=== PATIENT | female | born 1960 | race Caucasian/White ===

== ENCOUNTER 2017-01-20 07:46 | Emergency (ER) | payer SELFPAY ==
[~2017-01-20] VITALS: Ht 160 cm; Wt 80.0 kg
[2017-01-20 07:53] VITALS: BP 171/111; PULSE 107; RESP 16; TEMP 97.5; O2SAT 97
[2017-01-20 08:15] VITALS: BP 169/93; PULSE 97; RESP 20; O2SAT 99
--- NOTE | 2017-01-20 08:26 | PD ---
HPI Chief Complaint: Cardiac Complaint Time Seen by Provider: 08:05 Travel History International Travel<30 days: No Contact w/Intl Traveler<30days: No Traveled to known affect area: No History of Present Illness HPI The patient is a 56-year-old female who presents to the emergency department for elevated blood pressure. The patient states her mother recently at [facility] approximately one month ago from coronary artery disease. The patient states last week she's not been feeling well and occasionally has palpitations, shortness of breath, and dizziness. The patient' s blood pressure was noted to have a diastolic of 114 earlier today at work and she was referred to the emergency department. The patient does have a history of elevated blood pressure that was diagnosed by her primary physician, Dr. Smith, however, was not started on medications. The patient denies any acute chest pain or shortness of breath in the emergency department and denies any associated nausea, vomiting, abdominal pain, or focal deficits. Symptoms are mild to moderate, possibly exacerbated by history of elevated blood pressure , and self alleviating. She also complains of mild posterior neck pain over the last week, states that her stated looked upwards at times as well as get comfortable at night while sleeping. She denies any associated fever. COUNT INCLUDES THE [facility] Past Medical History Medical History: Denies Significant Hx Tetanus Vaccination: > 5 Years Influenza Vaccination: No ?: Not LMP: 2014 Menopausal: Yes Past Surgical History Other Surgery: Yes (BREAST LIFT, CHIN IMPLANT) Social History Alcohol Use: Yes (DAILY) Tobacco Use: No Substance Use: No Allergies-Medications (Allergen,Severity, Reaction): Coded Allergies: No Known Allergies (Unverified , 01/20/17) Reported Meds & Prescriptions Reported Meds & Active Scripts Active No Active Prescriptions or Reported Medications Review of Systems Except as stated in HPI: all other systems reviewed are Neg General / Constitutional: No: Fever Eyes: No: Visual changes HENT: Positive: Headaches (intermittent), Neck Pain (posterior neck pain times one week, worsen movement) Cardiovascular: No: Chest Pain or Discomfort Respiratory: Positive: Shortness of Breath (intermittent) Gastrointestinal: No: Nausea, Vomiting, Abdominal Pain Musculoskeletal: No: Weakness Neurologic: Positive: Dizziness (intermittent), No: Focal Abnormalities Physical Exam Narrative GENERAL: Awake, alert, pleasant 56-year-old female who appears her stated age and is in no acute respiratory distress. SKIN: Focused skin assessment warm/dry. HEAD: Atraumatic. Normocephalic. EYES: Pupils equal and round. 4 mm bilateral and reactive. EOMs are intact. ENT: No nasal bleeding or discharge. Mucous membranes pink and moist. NECK: Trachea midline. No JVD. Full range of motion with flexion, extension, and rotation. No midline tenderness or paravertebral tenderness. CARDIOVASCULAR: Regular rate and rhythm. No murmur appreciated. RESPIRATORY: No accessory muscle use. Clear to auscultation. Breath sounds equal bilaterally. GASTROINTESTINAL: Abdomen soft, non-tender, nondistended. MUSCULOSKELETAL: No obvious deformities. No clubbing. No cyanosis. No edema. NEUROLOGICAL: Awake and alert. No obvious cranial nerve deficits. Motor grossly within normal limits. Normal speech. Nonfocal. Oriented 4. Follows commands without difficulty. PSYCHIATRIC: Appropriate mood and affect; insight and judgment normal. Data Data Last Documented VS Vital Signs Date Time Temp Pulse Resp B/P (MAP) Pulse Ox O2 Delivery O2 Flow Rate FiO2 01/20/17 09:00 18 99 Room Air 01/20/17 08:15 96 01/20/17 07:53 97.5 Orders Orders Electrocardiogram (01/20/17 08:20) Ckmb (Isoenzyme) Profile (01/20/17 08:20) Complete Blood Count With Diff (01/20/17 08:20) Comprehensive Metabolic Panel (01/20/17 08:20) Magnesium (Mg) (01/20/17 08:20) Troponin I (01/20/17 08:20) Chest, Single Ap (01/20/17 08:20) Ecg Monitoring (01/20/17 08:20) Bilateral Bp Monitoring (01/20/17 08:20) Iv Access Insert/Monitor (01/20/17 08:20) Oximetry (01/20/17 08:20) Oxygen Administration (01/20/17 08:20) Aspirin Chew (Aspirin Chew) (01/20/17 08:30) Sodium Chloride 0.9% Flush (Ns Flush) (01/20/17 08:30) Sodium Chlorid 0.9% 500 Ml Inj (Ns 500 M (01/20/17 08:30) Ed Discharge Order (01/20/17 10:23) Labs Laboratory Tests Test 01/20/17 06:32 White Blood Count 7.2 TH/MM3 Red Blood Count 4.56 MIL/MM3 Hemoglobin 15.4 GM/DL Hematocrit 44.9 % Mean Corpuscular Volume 98.5 FL Mean Corpuscular Hemoglobin 33.7 PG Mean Corpuscular Hemoglobin Concent 34.3 % Red Cell Distribution Width 12.9 % Platelet Count 247 TH/MM3 Mean Platelet Volume 7.7 FL Neutrophils (%) (Auto) 69.6 % Lymphocytes (%) (Auto) 19.0 % Monocytes (%) (Auto) 8.7 % Eosinophils (%) (Auto) 1.8 % Basophils (%) (Auto) 0.9 % Neutrophils # (Auto) 5.0 TH/MM3 Lymphocytes # (Auto) 1.4 TH/MM3 Monocytes # (Auto) 0.6 TH/MM3 Eosinophils # (Auto) 0.1 TH/MM3 Basophils # (Auto) 0.1 TH/MM3 CBC Comment DIFF FINAL Differential Comment Blood Urea Nitrogen 10 MG/DL Creatinine 0.54 MG/DL Random Glucose 95 MG/DL Total Protein 7.5 GM/DL Albumin 3.7 GM/DL Calcium Level 9.3 MG/DL Magnesium Level 1.9 MG/DL Alkaline Phosphatase 80 U/L Aspartate Amino Transf (AST/SGOT) 24 U/L Alanine Aminotransferase (ALT/SGPT) 31 U/L Total Bilirubin 0.9 MG/DL Sodium Level 137 MEQ/L Potassium Level 3.6 MEQ/L Chloride Level 102 MEQ/L Carbon Dioxide Level 24.6 MEQ/L Anion Gap 10 MEQ/L Estimat Glomerular Filtration Rate 117 ML/MIN Total Creatine Kinase 43 U/L Troponin I LESS THAN 0.02 NG/ML MDM Medical Decision Making Medical Screen Exam Complete: Yes Emergency Medical Condition: Yes Medical Record Reviewed: Yes Interpretation(s) EKG reveals normal sinus rhythm with a rate 84. Wavy baseline. Last Impressions Chest X-Ray 01/20/17 0820 Signed Impressions: Service Date/Time: Friday, January 20, 2017 08:49 - CONCLUSION: The lungs are clear. Rachid Pa MD Laboratory Tests Test 01/20/17 06:32 White Blood Count 7.2 TH/MM3 Red Blood Count 4.56 MIL/MM3 Hemoglobin 15.4 GM/DL Hematocrit 44.9 % Mean Corpuscular Volume 98.5 FL Mean Corpuscular Hemoglobin 33.7 PG Mean Corpuscular Hemoglobin Concent 34.3 % Red Cell Distribution Width 12.9 % Platelet Count 247 TH/MM3 Mean Platelet Volume 7.7 FL Neutrophils (%) (Auto) 69.6 % Lymphocytes (%) (Auto) 19.0 % Monocytes (%) (Auto) 8.7 % Eosinophils (%) (Auto) 1.8 % Basophils (%) (Auto) 0.9 % Neutrophils # (Auto) 5.0 TH/MM3 Lymphocytes # (Auto) 1.4 TH/MM3 Monocytes # (Auto) 0.6 TH/MM3 Eosinophils # (Auto) 0.1 TH/MM3 Basophils # (Auto) 0.1 TH/MM3 CBC Comment DIFF FINAL Differential Comment Blood Urea Nitrogen 10 MG/DL Creatinine 0.54 MG/DL Random Glucose 95 MG/DL Total Protein 7.5 GM/DL Albumin 3.7 GM/DL Calcium Level 9.3 MG/DL Magnesium Level 1.9 MG/DL Alkaline Phosphatase 80 U/L Aspartate Amino Transf (AST/SGOT) 24 U/L Alanine Aminotransferase (ALT/SGPT) 31 U/L Total Bilirubin 0.9 MG/DL Sodium Level 137 MEQ/L Potassium Level 3.6 MEQ/L Chloride Level 102 MEQ/L Carbon Dioxide Level 24.6 MEQ/L Anion Gap 10 MEQ/L Estimat Glomerular Filtration Rate 117 ML/MIN Total Creatine Kinase 43 U/L Troponin I LESS THAN 0.02 NG/ML Differential Diagnosis Differential diagnosis includes hypertension, hypertensive urgency, hypertensive emergency, congestive heart failure, electrolyte abnormality, arrhythmia. Narrative Course IV was established, labs are drawn and sent, and the patient was placed on cardiac telemetry monitoring and continuous pulse oximetry monitoring. EKG was ordered and interpreted. Chest x-ray was obtained. Chest x-ray was unremarkable. Laboratory evaluation is unremarkable. Troponin and CPK are normal. The patient's blood pressure came down to a systolic in the 140s and diastolic in the 90s. The patient appears to have underlying hypertension, will be placed on low-dose was Cipro and advised to follow-up with her primary physician. She is also advised to keep a blood pressure log and return if symptoms worsen or progress. Patient agrees and understands. Diagnosis Primary Impression: Hypertension Qualified Codes: I10 - Essential (primary) hypertension Patient Instructions: General Instructions Additional Instructions: Medications as directed. Follow-up with your primary physician. Return if symptoms worsen or progress. Please provide the patient a copy of her x-ray results, lab results, and EKG at discharge. Monitor blood pressure daily and keep a log. Med/Other Pt SpecificInfo: Prescription(s) given Scripts Lisinopril (Lisinopril) 5 Mg Tab 5 MG PO DAILY for Blood Pressure Management, #30 TAB 0 Refills Prov: Grant Diaz MD 01/20/17 Disposition: 01 DISCHARGE HOME Condition: Stable Grant Diaz MD Jan 20, 2017 08:26
[2017-01-20] MEDS ORDERED: SODIUM CHLORID 0.9% 500 ML INJ 500 ML IV ONE (08:30)
[2017-01-20] MEDS ORDERED: ASPIRIN 81 MG CHEW TAB PO ONE (08:30)
[2017-01-20] MEDS ORDERED: SODIUM CHLORIDE 0.9% FLUSH 10 ML FLUSH IVF PRN (08:30)
[2017-01-20 08:55] LABS: BASOPHIL # 0.1 TH/MM3 (0-0.2); BASOPHIL % 0.9 % (0.0-2.0); EOSINOPHIL # 0.1 TH/MM3 (0-0.4); EOSINOPHIL % 1.8 % (0.0-4.0); HEMATOCRIT 44.9 % (35.0-46.0); HEMOGLOBIN 15.4 GM/DL (11.6-15.3); LYMPHOCYTE # 1.4 TH/MM3 (1.0-4.8); MEAN CELL VOLUME 98.5 FL (80.0-100.0); MEAN CORPUSCULAR HEMOGLOBIN 33.7 PG (27.0-34.0); MEAN CORPUSCULAR HGB CONC 34.3 % (32.0-36.0); MEAN PLATELET VOLUME 7.7 FL (7.0-11.0); MONO % 8.7 % (0.0-8.0); MONOCYTE # 0.6 TH/MM3 (0-0.9); NEUT % 69.6 % (16.0-70.0); PLATELET COUNT 247 TH/MM3 (150-450); RED BLOOD COUNT 4.56 MIL/MM3 (4.00-5.30); RED CELL DISTRIBUTION WIDTH 12.9 % (11.6-17.2); WHITE BLOOD COUNT 7.2 TH/MM3 (4.0-11.0)
[2017-01-20 09:00] VITALS: RESP 18; O2SAT 99
--- NOTE | 2017-01-20 09:19 | RADRPT ---
EXAM DATE/TIME: 01/20/2017 08:49 [facility] COMPARISON: No previous studies available for comparison. INDICATIONS : Palpitations. Syncope. Shortness of breath. MEDICAL HISTORY : Hypertension. SURGICAL HISTORY : None. ENCOUNTER: Initial ACUITY: 1 day PAIN SCORE: 0/10 LOCATION: Bilateral chest FINDINGS: A single view of the chest demonstrates the lungs to be symmetrically aerated without evidence of mas s, infiltrate or effusion. The cardiomediastinal contours are unremarkable. Osseous structures are intact. CONCLUSION: The lungs are clear. Rachid Pa MD on January 20, 2017 at 9:17 Board Certified Radiologist. This report was verified electronically.
[2017-01-20 09:23] LABS: ALBUMIN 3.7 GM/DL (3.4-5.0); AST (GOT) 24 U/L (15-37); BICARBONATE 24.6 MEQ/L (21.0-32.0); BLOOD UREA NITROGEN 10 MG/DL (7-18); CALCIUM 9.3 MG/DL (8.5-10.1); CHLORIDE 102 MEQ/L (98-107); CREATININE 0.54 MG/DL (0.50-1.00); GLOMERULAR FILTRATION RATE 117 ML/MIN (>89); GLUCOSE,RANDOM 95 MG/DL (74-106); MAGNESIUM 1.9 MG/DL (1.5-2.5); SODIUM (NA) 137 MEQ/L (136-145)
[2017-01-20 09:28] LABS: ALKALINE PHOSPHATASE 80 U/L (45-117); ALT (GPT) 31 U/L (10-53); TOTAL BILIRUBIN ADULT 0.9 MG/DL (0.2-1.0); TOTAL PROTEIN 7.5 GM/DL (6.4-8.2); TROPONIN I LESS THAN 0.02 NG/ML (0.02-0.05)
[2017-01-20] MEDS ORDERED: LISI-519 PO (10:25)
[2017-01-20 10:35] VITALS: BP 134/80
--- NOTE | 2017-01-20 18:04 | EKG ---
Date Performed: 01/20/2017 Time Performed: 08:37:59 PTAGE: 56 years EKG: Sinus rhythm WITH SHORT CA INTERVAL BORDERLINE ECG NO PREVIOUS TRACING DOCTOR: Ajay Chapman Interpretating Date/Time 01/20/2017 18:03:48
--- NOTE | 2017-01-20 18:04 | EKG ---
Date Performed: 01/20/2017 Time Performed: 08:37:59 PTAGE: 56 years EKG: Sinus rhythm WITH SHORT [place] INTERVAL BORDERLINE ECG NO PREVIOUS TRACING DOCTOR: Ajay Chapman Interpretating Date/Time 01/20/2017 18:03:48
--- NOTE | 2017-01-20 18:04 | EKG ---
Date Performed: 01/20/2017 Time Performed: 08:37:59 PTAGE: 56 years EKG: Sinus rhythm WITH SHORT MA INTERVAL BORDERLINE ECG NO PREVIOUS TRACING DOCTOR: Ajay Chapman Interpretating Date/Time 01/20/2017 18:03:48
== END 2017-01-20 11:02 | disposition home or self-care (01) ==
LOC: NEPE 07:46
DX: I10 Essential (primary) hypertension (principal); R94.31 Abnormal electrocardiogram [ECG] [EKG]; R00.2 Palpitations; R06.02 Shortness of breath; M54.2 Cervicalgia
CPT/HCPCS: 71010; 80053; 82550; 83735; 84484; 85025; 93005; 96360; 99285; J7040

== ENCOUNTER 2017-02-09 08:20 | Emergency (ER) | payer BC ==
[~2017-02-09] VITALS: Ht 160 cm; Wt 82.0 kg
[~2017-02-09 08:20] MED LIST: LISI-519 PO
[2017-02-09 08:22] VITALS: BP 155/95; PULSE 83; RESP 14; TEMP 98.4; O2SAT 99
[2017-02-09] MEDS ORDERED: CLON.5 PO (08:36)
[2017-02-09] MEDS ORDERED: ZOLO25TA PO (08:36)
[2017-02-09] MEDS ORDERED: PROPARACAINE HCL 0.5% OPHT SOLN 15 ML BTL EACH EYE ONE (09:00)
[2017-02-09] MEDS ORDERED: acetaZOLAMIDE 250 MG TAB PO ONE (10:00)
[2017-02-09] MEDS ORDERED: TIMOLOL MALEATE 0.5% OPHT SOLN 5 ML BTL LEFT EYE ONE (10:00)
[2017-02-09] MEDS ORDERED: [UNRECOGNIZED DRUG - OTHER] EACH EYE ONE (10:00)
[2017-02-09] MEDS ORDERED: PILOCARPINE HCL 1% OPHT SOLN 15 ML BTL LEFT EYE ONE (10:00)
[2017-02-09] MEDS ORDERED: OPTH EACH EYE ONE (10:00)
--- NOTE | 2017-02-09 10:05 | PD ---
Physical Exam Narrative I, Dr. Ruth, have reviewed the advance practice practitioner's documentation and am in agreement, met with the patient face to face, made the diagnosis, and the medical decision making was done by me. *My assessment and Findings: Acute angle closure glaucoma vs. iritis vs. retinal detachment vs. vitreous hemorrhage This patient was initially seen by the nurse practitioner before the beginning of my shift. Upon my arrival, she was asking me questions and I took over the care of this patient. This is a 56yo F with recent diagnosis of HTN and started on lisinopril here with complain of sudden onset left eye pain at 7pm yesterday night while watching television. Pt states she had progressive worsening vision in left eye. Denies any fever, or trauma. IOP left eye is elevated at 60. IOP right eye 10. Bedside ultrasound left eye showed no retinal detachment. No vitreous hemorrhage. Optic nerve diameter not dilated. There is no ophthalmology thoracic surgeon and we have been calling around for different manager decision support in the area with no answer so called ophthalmology in [place]. I discussed case with Dr. García from [place] [facility] and since pt has not received the medications that I initially ordered, we will go with his recommendations. He recommended cosopt 1 drop x2 15 minutes apart, brimonidine 0.2% 15 min apart and acetazolamide 500mg IV. Will recheck pressure after that. 10:45am: Administered 1 drop of cosopt, 1 drop of brimonidine to left eye. Received 500mg IV acetazolamide. 11:00am: Administered 2nd drop of cosopt and brimonidine. Pt had nausea and an episode of vomiting so zofran given. Pt reevaluated at bedside and repeat IOP left eye is 18. Vision has also improved. I was instructed to repeat the IOP. Pt no longer nauseous. IOP of left eye is again elevated and is now at 50. I discussed with manager decision support Dr. García. He said to discharge pt and to have pt come straight to his [place] office and meet him there at 2:30pm. Will give pt the eye drops physically and prescribe diamox. Data Data Last Documented VS Vital Signs Date Time Temp Pulse Resp B/P (MAP) Pulse Ox O2 Delivery O2 Flow Rate FiO2 02/09/17 08:32 82 18 02/09/17 08:22 98.4 155/95 (115) 99 Orders Orders Proparacaine 0.5% Opth Soln (Alcaine 0.5 (02/09/17 09:00) Ed Poc Ultrasound (02/09/17 ) Timolol 0.5% Opth Soln (Timoptic 0.5% Op (02/09/17 10:00) Apraclonidine 1% Opth Soln (Iopidine 1% (02/09/17 10:00) Pilocarpine 1% Opth Soln (Isopto Carpine (02/09/17 10:00) Acetazolamide (Diamox) (02/09/17 10:00) Brimonidine 0.2% Opth Soln (Alphagan 0.2 (02/09/17 10:30) Dorzol-Timol 2-0.5% Opth Soln (Cosopt 2- (02/09/17 10:30) Acetazolamide Inj (Diamox Inj) (02/09/17 10:30) Basic Metabolic Panel (Bmp) (02/09/17 10:18) Ondansetron Inj (Zofran Inj) (02/09/17 11:30) Ed Discharge Order (02/09/17 12:58) Labs Laboratory Tests Test 02/09/17 10:25 Blood Urea Nitrogen 7 MG/DL Creatinine 0.71 MG/DL Random Glucose 106 MG/DL Calcium Level 9.3 MG/DL Sodium Level 137 MEQ/L Potassium Level 4.0 MEQ/L Chloride Level 102 MEQ/L Carbon Dioxide Level 27.9 MEQ/L Anion Gap 7 MEQ/L Estimat Glomerular Filtration Rate 85 ML/MIN MDM Supervised Visit with ISAAC: Yes Critical Care Narrative Aggregate critical care time was 50 minutes. Time to perform other separately billable procedures not included in the critical care time. My time did not include minutes spent treating any other patients simultaneously or on activities that did not directly contribute to the patient's treatment. The services I provided to this patient were to treat and/or prevent clinically significant deterioration that could result in: blindness. I provided critical care services requiring my management, as noted below: Chart data review, documentation time, medication orders and management, vital sign assessments/reviewing monitor data, ordering and reviewing lab tests, ordering and interpreting/reviewing x- rays and diagnostic studies, care of the patient. Procedures Procedure Narrative Emergency department ocular ultrasound was performed with patient consent. Left eye: Linear probe was used in the transverse and sagittal views of the orbit without evidence of retinal detachment, vitreous hemorrhage, or lens dislocation. Diagnosis Primary Impression: Acute glaucoma of left eye Departure Forms: Tests/Procedures Additional Instruction: Please go straight to see Dr. García in [address] [facility]. [place], [place] at 2:30pm. Return to the ED if symptoms worsen. Med/Other Pt SpecificInfo: Prescription(s) given Scripts Acetazolamide ER 12 HR (Diamox Sequels ER 12 HR) 500 Mg Cap 500 MG PO Q12HR for Glaucoma for 7 Days, #60 CAP 0 Refills Prov: Liliana Ruth DO 02/09/17 Disposition: 01 DISCHARGE HOME Condition: Stable Liliana Ruth DO Feb 09, 2017 10:05
[2017-02-09] MEDS ORDERED: BRIMONIDINE TARTRATE 0.2% OPHT SOLN 5 ML BTL LEFT EYE ONE (10:30)
[2017-02-09] MEDS ORDERED: DORZOLAMIDE/TIMOLOL OPTH SOLN 10 ML BTL EACH EYE ONE (10:30)
--- NOTE | 2017-02-09 10:44 | PD ---
HPI . Left eye complaint Chief Complaint: Eye Problems/Injury Time Seen by Provider: 08:29 Travel History International Travel<30 days: No Contact w/Intl Traveler<30days: No Traveled to known affect area: No History of Present Illness HPI 56-year-old female presents emergency department for evaluation of left eye pain and injection that started spontaneously last night around 7 PM when she is watching television. Patient denies any eye trauma or injury. Patient denies any history of eye problems. Patient is not a contact lens wear. Patient recently was diagnosed with hypertension and started on lisinopril. Otherwise patient has no major medical history. [facility] Past Medical History Anxiety: Yes Cardiovascular Problems: Yes (HTN) ?: Not Menopausal: Yes Past Surgical History Other Surgery: Yes (BREAST LIFT, CHIN IMPLANT) Social History Alcohol Use: Yes (DAILY) Tobacco Use: No Substance Use: No Allergies-Medications (Allergen,Severity, Reaction): Coded Allergies: No Known Allergies (Unverified , 01/20/17) Reported Meds & Prescriptions Reported Meds & Active Scripts Active Diamox Sequels ER 12 HR (Acetazolamide) 500 Mg Cap 500 Mg PO Q12HR 7 Days Lisinopril 5 Mg Tab 5 Mg PO DAILY Reported Klonopin (Clonazepam) 0.5 Mg Tab 0.5 Mg PO BID Zoloft (Sertraline HCl) 25 Mg Tab 25 Mg PO DAILY Review of Systems Except as stated in HPI: all other systems reviewed are Neg Physical Exam Narrative GENERAL: Well-nourished, well-developed 56-year-old female patient in no respiratory distress. Patient is visibly anxious about eye condition. Nontoxic appearing. SKIN: Focused skin assessment warm/dry. HEAD: Normocephalic. Atraumatic. EYES: Left eye injected. Right pupil 3 mm round and responsive to light and accommodation.. Left pupil is 6 mm round, and nonresponsive to light or accommodation. Extraocular motions intact bilaterally. Visual acuity: Right eye 20/50, left eye 0/20, bilateral eyes 20/50 NECK: Supple, trachea midline. No JVD or lymphadenopathy. CARDIOVASCULAR: Regular rate and rhythm without murmurs, gallops, or rubs. RESPIRATORY: Breath sounds equal bilaterally. No accessory muscle use. GASTROINTESTINAL: Abdomen soft, non-tender, nondistended. MUSCULOSKELETAL: No cyanosis, or edema. BACK: Nontender without obvious deformity. No CVA tenderness. Data Data Last Documented VS Vital Signs Date Time Temp Pulse Resp B/P (MAP) Pulse Ox O2 Delivery O2 Flow Rate FiO2 02/09/17 08:32 82 18 02/09/17 08:22 98.4 155/95 (115) 99 Orders Orders Proparacaine 0.5% Opth Soln (Alcaine 0.5 (02/09/17 09:00) Ed Poc Ultrasound (02/09/17 ) Timolol 0.5% Opth Soln (Timoptic 0.5% Op (02/09/17 10:00) Apraclonidine 1% Opth Soln (Iopidine 1% (02/09/17 10:00) Pilocarpine 1% Opth Soln (Isopto Carpine (02/09/17 10:00) Acetazolamide (Diamox) (02/09/17 10:00) Brimonidine 0.2% Opth Soln (Alphagan 0.2 (02/09/17 10:30) Dorzol-Timol 2-0.5% Opth Soln (Cosopt 2- (02/09/17 10:30) Acetazolamide Inj (Diamox Inj) (02/09/17 10:30) Basic Metabolic Panel (Bmp) (02/09/17 10:18) Ondansetron Inj (Zofran Inj) (02/09/17 11:30) Ed Discharge Order (02/09/17 12:58) Labs Laboratory Tests Test 02/09/17 10:25 Blood Urea Nitrogen 7 MG/DL Creatinine 0.71 MG/DL Random Glucose 106 MG/DL Calcium Level 9.3 MG/DL Sodium Level 137 MEQ/L Potassium Level 4.0 MEQ/L Chloride Level 102 MEQ/L Carbon Dioxide Level 27.9 MEQ/L Anion Gap 7 MEQ/L Estimat Glomerular Filtration Rate 85 ML/MIN MDM Medical Decision Making Medical Screen Exam Complete: Yes Emergency Medical Condition: Yes Differential Diagnosis Differential diagnoses include but not limited to closed angle glaucoma, iritis , retinal detachment Narrative Course Tonometry was performed and shows an elevated pressure in the left eye of 60. There is complete visual loss in the left eye. The left eye is injected with pupil significantly larger than the right eye and not responsive to light or accommodation. Extraocular motions intact bilaterally. Patient is recently diagnosed hypertension and started on lisinopril. Patient's blood pressure is slightly elevated in triage at 155/95. Our facility does not have an wash oil pump operator call person at this time. Bottle Gauger in [place], Dr García was called regarding this case. Dr. Ruth spoke with wash oil pump operator. Dr. Ruth performed a bedside ultrasound of the left eye and confirm that the retina was in place and the optic nerve was intact. Eyedrops administered to left eye per Dr. García's recommendations. Dr Ruth assumes care for this patient. Please see her documentation for further details and disposition. Scripts Acetazolamide ER 12 HR (Diamox Sequels ER 12 HR) 500 Mg Cap 500 MG PO Q12HR for Glaucoma for 7 Days, #60 CAP 0 Refills Prov: Liliana Ruth DO 02/09/17 Sabra Oleary Feb 09, 2017 10:44
[2017-02-09 11:14] LABS: BICARBONATE 27.9 MEQ/L (21.0-32.0)
[2017-02-09] MEDS ORDERED: ONDANSETRON HCL 4 MG/2 ML VIAL IV PUSH ONE (11:30)
[2017-02-09] MEDS ORDERED: ACETA500 PO (12:58)
== END 2017-02-09 13:22 | disposition home or self-care (01) ==
LOC: NEPD 08:20
DX: H40.9 Unspecified glaucoma (principal); H54.62 Unqualified visual loss, left eye, normal vision right eye; I10 Essential (primary) hypertension
CPT/HCPCS: 80048; 96374; 96375; 99291; J1120; J2405